=== PATIENT | female | born 1985 | race Caucasian/White ===

== ENCOUNTER 2022-07-17 05:33 | Emergency (ER) | payer MEDICAID ==
[~2022-07-17] VITALS: Ht 160 cm; Wt 72.6 kg
--- NOTE | 2022-07-17 06:38 | NUR ---
Dr Steen at bedside, MSE in progress
[2022-07-17] MEDS ORDERED: DEXAMETHASONE SOD PHOSPHATE 4 MG INJ IM ONE (06:45)
[2022-07-17] MEDS ORDERED: CEFTRIAXONE 1 G VIAL IM ONE (06:45)
[2022-07-17] MEDS ORDERED: diphenhydrAMINE 50 MG/1 ML VIAL IM ONE (06:45)
[2022-07-17] MEDS ORDERED: LIDOCAINE HCL 1% 20 ML VIAL IJ ONE (06:45)
--- NOTE | 2022-07-17 07:00 | NUR ---
CARE ASSUME AND MEDS NOT GIVEN AWAITING PREG TEST.
--- NOTE | 2022-07-17 07:02 | NUR ---
patient is able to walk to the restroom with steady gait, NAD noted
--- NOTE | 2022-07-17 07:10 | NUR ---
change of shift report to Trinidad DEJESUS
[2022-07-17 08:24] LABS: *URINE HCG, QUAL NEGATIVE (NEGATIVE)
[2022-07-17] MEDS ORDERED: LIDOCAINE HCL 2% 20 ML VIAL ONE (08:26)
--- NOTE | 2022-07-17 08:30 | NUR ---
AWAITING PREG TEST FROM URINE PRIOR TO MEDICATION AND LAB CALLED AND RESULTS PENDING.
[2022-07-17] MEDS ORDERED: CEPH500C2 PO (08:31)
[2022-07-17] MEDS ORDERED: SULF1TAB48 PO (08:31)
[2022-07-17] MEDS ORDERED: DEXAMETHASONE SOD PHOSPHATE 10 MG INJ ONE (08:54)
[2022-07-17] MEDS ORDERED: diphenhydrAMINE 50 MG/1 ML VIAL ONE (08:54)
[2022-07-17] MEDS ORDERED: CEFTRIAXONE 1 G VIAL ONE (08:54)
--- NOTE | 2022-07-17 09:13 | NUR ---
MEDICATIONS GIVEN AND PATIENT DISCHARGED HOME WITH D/C INSTRUCTIONS AND F/U APPT WITH PCP. RX SENT TO [facility].
[2022-07-17 09:39] VITALS: BP 141/93
== END 2022-07-17 09:13 | disposition home or self-care (01) ==
LOC: ER 06:33
DX: S00.06XA Insect bite (nonvenomous) of scalp, initial encounter (principal); L03.811 Cellulitis of head [any part, except face]; W57.XXXA Bitten or stung by nonvenomous insect and other nonvenomous arthropods, initial encounter; Y92.89 Other specified places as the place of occurrence of the external cause; Z86.19 Personal history of other infectious and parasitic diseases; J45.909 Unspecified asthma, uncomplicated; G40.909 Epilepsy, unspecified, not intractable, without status epilepticus; Z88.5 Allergy status to narcotic agent
CPT/HCPCS: 99284; 84703; 96372 ×2; J0696; J1100; J1200; J3490; A4663

== ENCOUNTER 2025-07-11 02:32 | Emergency (ER) | payer MEDICAID, MEDICARE ==
[~2025-07-11] VITALS: Ht 160 cm; Wt 72.6 kg
[2025-07-11 02:32] VITALS: BP 144/52
[~2025-07-11 02:32] MED LIST: CEPH500C2 PO; SULF1TAB48 PO
[2025-07-11] MEDS ORDERED: KETOROLAC TROMETHAMINE 30 MG INJ ONE (03:35)
[2025-07-11] MEDS: KETOROLAC TROMETHAMINE 30 MG INJ IM ONE (03:45)
[2025-07-11 03:58] LABS: *BILIRUBIN,URIN NEGATIVE (NEGATIVE); *BLOOD, URINE NEGATIVE (NEGATIVE); *CLARITY,URINE CLEAR (CLEAR); *COLOR,URINE YELLOW (YELLOW); *KETONES,URINE NEGATIVE (NEGATIVE); *PROTEIN,URINE TRACE (NEGATIVE); *UROBILINOGEN,URINE 0.2 E.U./dl (NORMAL); LEUKOCYTE ESTERASE ,URINE NEGATIVE (NEGATIVE); NITRITE, URINE NEGATIVE (NEGATIVE); UGLUCOSE NEGATIVE (NEGATIVE)
[2025-07-11 04:10] LABS: *URINE HCG, QUAL POSITIVE (NEGATIVE)
[2025-07-11 04:11] LABS: *AMPHETAMINE, URINE POSITIVE (NEGATIVE); *BARBITURATE, URINE NEGATIVE (NEGATIVE); *BENZODIAZEPINE, URINE NEGATIVE (NEGATIVE); *CANNABINOID, URINE NEGATIVE (NEGATIVE); *COCCAINE, URINE NEGATIVE (NEGATIVE); *OPIATE, URINE NEGATIVE (NEGATIVE); *PHENCYCLIDINE SCREEN,URINE NEGATIVE (NEGATIVE); FENTANYL, URINE NEGATIVE (NEGATIVE)
[2025-07-11 04:12] LABS: SQUAMOUS EPITHELIAL CELL,UR MANY /HPF (NONE SEEN)
[2025-07-11] MEDS ORDERED: NAPR-1009 PO (06:40)
[2025-07-11 06:43] VITALS: BP 144/52; O2SAT 96
== END 2025-07-11 06:45 | disposition home or self-care (01) ==
LOC: ER 02:58
DX: S73.192A Other sprain of left hip, initial encounter (principal); F17.200 Nicotine dependence, unspecified, uncomplicated; F19.10 Other psychoactive substance abuse, uncomplicated; G40.909 Epilepsy, unspecified, not intractable, without status epilepticus; J45.909 Unspecified asthma, uncomplicated; M54.50 Low back pain, unspecified; Z59.01 Sheltered homelessness; Z86.19 Personal history of other infectious and parasitic diseases; Z86.73 Personal history of transient ischemic attack (TIA), and cerebral infarction without residual deficits; Z88.5 Allergy status to narcotic agent; Z88.7 Allergy status to serum and vaccine; X50.1XXA Overexertion from prolonged static or awkward postures, initial encounter; Y93.51 Activity, roller skating (inline) and skateboarding; Y92.89 Other specified places as the place of occurrence of the external cause; Y99.8 Other external cause status
CPT/HCPCS: 99285; 72192; 81001; 84703; 96372; 80307; J1885; A4606; A4663